=== PATIENT | male | born 1995 | race Hispanic/Latino ===

== ENCOUNTER → 2016-09-27 | Outpatient (CLI) | payer OTHER ==
[~2016-09-27] MED LIST: CONRAY-43 43% 50ML VIAL (Q9960) As Ordered ONE
--- NOTE | 2016-09-27 13:10 | REP ---
MRI RIGHT SHOULDER WITHOUT AND WITH CONTRAST ARTHROGRAM: 09/27/2016. No prior study. Outside radiographs did not accompany the patient for this examination. Order describes Hill-Sachs deformity and bony Bankart lesion. Clinical history: Recurrent dislocation. Technique: Coronal T1 and fat suppressed T2, axial fat suppressed T2 and following gadolinium arthrogram injection by Tae Quinonez, under my direct supervision, the patient had additional post gadolinium fat suppressed T1 axial and PD sequences with coronal T1 fat suppressed and T2 and a sagittal fat suppressed T2 sequence. Findings: Slight very mild hypertrophic change of the AC joint mostly from the acromion and gently indenting the musculotendinous junction of the rotator cuff. No subacromial or subdeltoid bursal fluid noted. Supraspinatus tendon is notable for some minimal tendinopathy but no evidence of a full-thickness tear, retraction of the tendon nor atrophy of its muscle belly. Axial images do show a small Hill-Sachs deformity posteriorly of the greater tuberosity humeral head with some adjacent subchondral edema. No subluxation, dislocation. There is an anterior Bankart lesion evident. There is no glenohumeral joint effusion on the precontrast images. The bony coracoid was intact. The coracoclavicular and coracohumeral ligaments are intact. Contrast arthrogram does show contrast along the anterior margin of the bony glenoid with undermining of the glenoid labral junction. I do not see significant marrow edema in the bony glenoid. Posterior labrum and superior labral margins are grossly intact. The subscapularis tendon and muscle along with the infraspinatus and teres minor tendons and muscles are intact. The biceps tendon is seated in its groove. Biceps labral complex grossly intact. The spinal glenoid notch shows no evidence of fluid collection or mass. Impression: 1. There is a small Hill-Sachs deformity posterolateral aspect humeral head and the Bankart lesion anteriorly along the glenoid and glenolabral junction with no evidence of rotator cuff tear or loose body. 2. Superior and posterior labrum, biceps labral complex and the biceps tendon course proximally all unremarkable. 3. Minimal degenerative spurring inferiorly at the AC joint from a small spur from the acromion but no impingement of significance or signal abnormality in the musculotendinous junction of the supraspinatus. No full-thickness tear or retraction of the tendon with only mild tendinopathy/tendinosis. 4. Coracoclavicular coracohumeral ligaments intact. Signed by Phil Ventura MD 09/27/2016 08:21 P
--- NOTE | 2016-09-27 20:21 | REP ---
Procedure: Right shoulder arthrogram The procedure was performed under the direct supervision of Dr. Ventura. History: Right shoulder pain The benefits and risks including but not limited to pain, infection, bleeding and anaphylaxis were explained to the patient and informed consent was obtained. Technique: The right glenohumeral joint space was localized using fluoroscopic guidance. The skin was prepped and draped in a sterile fashion. 1% lidocaine was used as a local anesthetic. Using fluoroscopic guidance a 22 gauge spinal needle was inserted and advanced into the joint. 0.5 ml of Conray 43 was injected to verify placement. 11 ml of a solution containing 20 ml of sterile saline and 0.15 ml of ProHance was injected into the joint. The needle was removed and the patient was taken to MRI for postprocedural imaging. The the patient tolerated the procedure well and there were no immediate complications. 1 second of fluoro time was utilized for this procedure. Reviewed by EMMIE Dykes 09/27/2016 04:34 PSigned by Phil Ventura MD 09/27/2016 08:12 P
== END ==
LOC: M RADPRO 06:40
DX: M75.91 Shoulder lesion, unspecified, right shoulder (principal); M19.011 Primary osteoarthritis, right shoulder; M24.811 Other specific joint derangements of right shoulder, not elsewhere classified
CPT/HCPCS: 23350; 73223; 77002; A9576; Q9960

== ENCOUNTER 2017-08-18 14:11 | Emergency (ER) | payer OTHER | END 2017-08-18 15:24 | disposition home or self-care (01) | LOC: M ED 14:11 | DX: S60.221A Contusion of right hand, initial encounter (principal); Y04.8XXA Assault by other bodily force, initial encounter; Y92.099 Unspecified place in other non-institutional residence as the place of occurrence of the external cause; Y93.89 Activity, other specified; Z91.013 Allergy to seafood | CPT/HCPCS: 73130 ==

== ENCOUNTER 2017-09-19 16:43 | Emergency (ER) | payer OTHER | END 2017-09-19 18:36 | disposition home or self-care (01) | LOC: M ED 16:43 | DX: S16.1XXA Strain of muscle, fascia and tendon at neck level, initial encounter (principal); V43.52XA Car driver injured in collision with other type car in traffic accident, initial encounter; Y92.9 Unspecified place or not applicable; Y93.9 Activity, unspecified; Z79.899 Other long term (current) drug therapy; Z91.013 Allergy to seafood | CPT/HCPCS: 70450 ==